=== PATIENT | female | born 1980 | race Caucasian/White ===

== ENCOUNTER 2016-07-02 03:15 | Emergency (ER) | payer MEDICAID ==
[~2016-07-02] VITALS: Ht 162.6 cm; Wt 61.4 kg
[2016-07-02 03:15] VITALS: BP 96/62; PULSE 68; TEMP 97.8
[~2016-07-02 03:15] MED LIST: FERROUS SULFATE65 MG PO; NORCO 325 MG-51 TAB PO; ULTRAM 50MG TAB50 MG PO
[2016-07-02 03:37] LABS: BASO % 0.3 % (0.0-2.0); EOS # 0.1 (0.0-0.7); EOS % 0.9 % (0-4.0); GRAN # 4.3 (1.4-6.5); GRAN % 64.5 % (42.2-75.2); LYMPH # 1.8 (1.2-3.4); LYMPH % 26.7 % (20.0-51.0); MEAN CELL VOLUME 89 fl (80.0-100.0); MEAN CORPUSCULAR HGB CONC 34 g/dl (33.0-37.0); MEAN PLATELET VOLUME 9.1 fl (7.4-10.4); MONO # 0.5 (0.1-0.6); MONO % 7.1 % (1.7-9.3); PLATELET COUNT 231 K/mm3 (130-400); RED BLOOD COUNT 3.85 M/mm3 (4.10-5.30); REDCELL DISTRIBUTION WIDTH-CV 12.4 % (11.5-14.5); WHITE BLOOD COUNT 6.6 K/mm3 (4.8-10.8)
[2016-07-02 03:48] LABS: HEMATOCRIT 34.4 % (37.0-47.0); HEMOGLOBIN 11.6 g/dl (12.5-16.0); MEAN CORPUSCULAR HEMOGLOBIN 30 pg (27.0-31.0)
[2016-07-02 03:50] LABS: ADJUSTED CALCIUM 8.9 mg/dL (8.4-10.2); ALANINE AMINOTRANSFERASE 40 U/L (9-52); ALBUMIN 3.8 gm/dL (3.5-5.0); ALKALINE PHOSPHATASE 52 U/L (50-136); ANION GAP 10 mmol/L (7-16); BILIRUBIN,TOTAL 0.8 mg/dL (0.0-1.0); BLOOD UREA NITROGEN 22 mg/dL (7-17); CALCIUM 8.7 mg/dL (8.4-10.2); CARBON DIOXIDE 23 mmol/L (22-30); CHLORIDE 104 mmol/L (98-107); CREATININE, serum 0.76 mg/dL (0.52-1.25); GLUCOSE 97 mg/dL (74-106); POTASSIUM 3.8 mmol/L (3.4-5.0); SODIUM 138 mmol/L (137-145); TOTAL PROTEIN 6.9 gm/dL (6.4-8.2)
[2016-07-02 03:54] LABS: ACETAMINOPHEN < 10 ug/mL (10-30); SALICYLATE < 1.0 mg/dL
[2016-07-02 04:58] LABS: AMPHETAMINE URINE POSITIVE; BARBITURATES URINE NEGATIVE; BENZODIAZEPINES URINE POSITIVE; BUPRENORPHINE URINE NEGATIVE; METHADONE URINE NEGATIVE; OPIATES URINE NEGATIVE; OXYCODONE URINE NEGATIVE; PHENCYCLIDINE URINE NEGATIVE; PROPOXYPHENE URINE NEGATIVE; THC CANNABINOIDS URINE POSITIVE
== END 2016-07-02 13:05 | disposition home or self-care (01) ==
LOC: COL.ER 03:15
PROVIDERS: Emergency Medicine
DX: T45.0X2A Poisoning by antiallergic and antiemetic drugs, intentional self-harm, initial encounter (principal); Y92.009 Unspecified place in unspecified non-institutional (private) residence as the place of occurrence of the external cause

== ENCOUNTER 2016-07-18 13:12 | Observation (INO) | payer MEDICAID ==
[2016-07-18] VITALS (208 sets, daily range): BP systolic 118–126; BP diastolic 86; PULSE 68; TEMP 98; O2SAT 92–100
[~2016-07-18] VITALS: Ht 165.1 cm; Wt 61.8 kg
[2016-07-18 14:33] LABS: BASO % 0.4 % (0.0-2.0); EOS # 0.1 (0.0-0.7); EOS % 0.7 % (0-4.0); GRAN % 58.4 % (42.2-75.2); HEMATOCRIT 37.9 % (37.0-47.0); HEMOGLOBIN 12.8 g/dl (12.5-16.0); LYMPH # 2.6 (1.2-3.4); LYMPH % 31.1 % (20.0-51.0); MEAN CELL VOLUME 90 fl (80.0-100.0); MEAN CORPUSCULAR HEMOGLOBIN 30 pg (27.0-31.0); MEAN CORPUSCULAR HGB CONC 34 g/dl (33.0-37.0); MEAN PLATELET VOLUME 9.1 fl (7.4-10.4); MONO # 0.8 (0.1-0.6); MONO % 9.2 % (1.7-9.3); PLATELET COUNT 284 K/mm3 (130-400); RED BLOOD COUNT 4.22 M/mm3 (4.10-5.30); REDCELL DISTRIBUTION WIDTH-CV 12.3 % (11.5-14.5); WHITE BLOOD COUNT 8.5 K/mm3 (4.8-10.8)
[2016-07-18 14:46] LABS: AMPHETAMINE URINE POSITIVE; BARBITURATES URINE NEGATIVE; BENZODIAZEPINES URINE NEGATIVE; BUPRENORPHINE URINE NEGATIVE; METHADONE URINE NEGATIVE; OPIATES URINE POSITIVE; OXYCODONE URINE POSITIVE; PHENCYCLIDINE URINE NEGATIVE; PROPOXYPHENE URINE NEGATIVE; THC CANNABINOIDS URINE POSITIVE
[2016-07-18 14:52] LABS: PH 6 (5-8); SQUAMOUS EPITHELIAL 0-2 /hpf; URINE APPEARANCE Hazy; URINE BACTERIA None Seen /hpf; URINE BILIRUBIN Negative (NEGATIVE); URINE BLOOD Negative (NEGATIVE); URINE COLOR Yellow; URINE GLUCOSE Negative (NEGATIVE); URINE KETONE Negative (NEGATIVE); URINE RBC 0-2 /hpf; URINE UROBILINOGEN Negative (NEGATIVE)
[2016-07-18 14:54] LABS: ADJUSTED CALCIUM 9.4 mg/dL (8.4-10.2); ALANINE AMINOTRANSFERASE 28 U/L (9-52); ALBUMIN 3.9 gm/dL (3.5-5.0); ALKALINE PHOSPHATASE 50 U/L (50-136); ANION GAP 10 mmol/L (7-16); BILIRUBIN,TOTAL 1.2 mg/dL (0.0-1.0); BLOOD UREA NITROGEN 12 mg/dL (7-17); CALCIUM 9.3 mg/dL (8.4-10.2); CARBON DIOXIDE 28 mmol/L (22-30); CHLORIDE 102 mmol/L (98-107); CREATININE, serum 0.76 mg/dL (0.52-1.25); GLUCOSE 89 mg/dL (74-106); SODIUM 139 mmol/L (137-145)
[2016-07-18 14:56] LABS: ACETAMINOPHEN < 10 ug/mL (10-30)
[2016-07-18 15:25] LABS: THYROID STIMULATING HORMONE 0.495 uIU/mL (0.465-4.680)
[2016-07-19] VITALS (1238 sets, daily range): BP systolic 92–116; BP diastolic 41–78; PULSE 45–60; TEMP 97–98.4; O2SAT 82–100
[2016-07-20] VITALS (644 sets, daily range): BP systolic 89–118; BP diastolic 37–72; PULSE 45–90; TEMP 97.4–98.4; O2SAT 75–100
[2016-07-21] VITALS: BP 99/49; PULSE 47; TEMP 98.2
[2016-07-21 03:57] VITALS: BP 105/59; PULSE 54; TEMP 98.2
[2016-07-21 08:30] VITALS: BP 115/64; PULSE 59; TEMP 97.7
[2016-07-21 11:47] VITALS: PULSE 57
[2016-07-21 15:27] VITALS: PULSE 59; TEMP 98
[2016-07-21 20:00] VITALS: BP 109/66; PULSE 60; TEMP 98.2
[2016-07-22] VITALS: BP 109/66; PULSE 48; TEMP 98.2
[2016-07-22 04:00] VITALS: BP 111/87; PULSE 49; TEMP 97.7
[2016-07-22 07:59] VITALS: BP 87/38; PULSE 58; TEMP 98.2
[2016-07-22 12:00] VITALS: PULSE 56; TEMP 98.2
[2016-07-22 15:44] VITALS: PULSE 61; TEMP 98.1
[2016-07-22 20:00] VITALS: BP 92/64; PULSE 69; TEMP 98.4
== END 2016-07-22 22:50 ==
LOC: COL.ER 13:12 → ICU 18:54
PROVIDERS: Nurse Practitioner
DX: F33.2 Major depressive disorder, recurrent severe without psychotic features (principal); F43.10 Post-traumatic stress disorder, unspecified; F12.90 Cannabis use, unspecified, uncomplicated; F11.90 Opioid use, unspecified, uncomplicated; F15.90 Other stimulant use, unspecified, uncomplicated
CPT/HCPCS: 90791-AI; G0378

== ENCOUNTER 2018-07-25 18:36 | Emergency (ER) | payer BC | END 2018-07-25 22:46 | disposition home or self-care (01) | LOC: COL.ER 18:36 | DX: J18.1 Lobar pneumonia, unspecified organism (principal); F17.210 Nicotine dependence, cigarettes, uncomplicated; F12.90 Cannabis use, unspecified, uncomplicated; Z90.89 Acquired absence of other organs; Z90.710 Acquired absence of both cervix and uterus; Z90.49 Acquired absence of other specified parts of digestive tract; Z85.43 Personal history of malignant neoplasm of ovary ==

== ENCOUNTER 2018-08-10 19:43 | Emergency (ER) | payer BC ==
[~2018-08-10] VITALS: Ht 165.1 cm; Wt 59.1 kg
[~2018-08-10 19:43] MED LIST changes: +DOXYCYCLINE 10100 MG PO
[2018-08-10 20:04] VITALS: BP 133/58; TEMP 98.5
[2018-08-10] MEDS ORDERED: CEPHALEXIN500 M1 PO (23:08)
[2018-08-10 23:53] VITALS: PULSE 86
== END 2018-08-10 23:53 | disposition home or self-care (01) ==
LOC: COL.ER 19:43
DX: S61.412A Laceration without foreign body of left hand, initial encounter (principal); Z23 Encounter for immunization; W26.0XXA Contact with knife, initial encounter; Y92.009 Unspecified place in unspecified non-institutional (private) residence as the place of occurrence of the external cause

== ENCOUNTER 2019-11-03 11:13 | Emergency (ER) | payer SELFPAY ==
[~2019-11-03] VITALS: Ht 165.1 cm; Wt 59.1 kg
[~2019-11-03 11:13] MED LIST changes: +CEPHALEXIN500 M1 PO
[2019-11-03 11:18] VITALS: TEMP 98.9
[2019-11-03 13:40] VITALS: BP 114/74; PULSE 82
== END 2019-11-03 13:40 | disposition home or self-care (01) ==
LOC: COL.ER 11:13
DX: S63.91XA Sprain of unspecified part of right wrist and hand, initial encounter (principal); W23.0XXA Caught, crushed, jammed, or pinched between moving objects, initial encounter